=== PATIENT | male | born 1990 | race Two or more races ===

== ENCOUNTER 2016-05-02 15:13 | Emergency (ER) | payer SELFPAY ==
[~2016-05-02] VITALS: Ht 170.2 cm; Wt 82.0 kg
[2016-05-02 15:51] VITALS: BP 119/54
[2016-05-02] MEDS ORDERED: IBUPROFEN 600MG TABLET PO ONE (17:30)
== END 2016-05-02 18:00 | disposition home or self-care (01) ==
LOC: ER 15:14
DX: R51 Headache (principal)
CPT/HCPCS: 99282